=== PATIENT | female | born 1940 | race Caucasian/White ===

== ENCOUNTER 2016-12-28 08:58 | Emergency (ER) | payer MEDICARE, OTHER ==
--- NOTE | 2016-12-28 09:28 | EDM.PDOC ---
ED HPI GENERAL MEDICAL PROBLEM - General Chief Complaint: Chest Pain Stated Complaint: VERTIGO/CHEST IS TIGHT & FLUTTERY Time Seen by Provider: 12/28/16 09:05 Source of Information: Reports: Patient, Family History Limitations: Reports: No Limitations - History of Present Illness INITIAL COMMENTS - FREE TEXT/NARRATIVE: 76-year-old female who had a preoperative history and physical yesterday, mentioned to her primary care provider she's been having some intermittent chest pressure so an EKG was done but she did not hear the results. No labs were obtained. This morning she got up and had breakfast and was having some pressure and dizziness so came in to be seen. Having is also having some shortness of breath with activity at times. She had an angiogram 4 years ago which was normal. 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 She's also has a pending bunion surgery. Onset: Unknown/Unsure (Intermittent for the past several days to weeks. Symptoms are subtle.) Location: Reports: Chest Severity: Mild Worsens with: Reports: Eating, Rest Associated Symptoms: Reports: Other (Dizziness intermittently). Denies: Cough, Nausea/Vomiting Chest Pain Score (Numeric/FACES): 5 - Related Data Allergies Allergy/AdvReac Type Severity Reaction Status Date / Time codeine Allergy Chest Verified 12/28/16 09:08 Tightness erythromycin base Allergy Diarrhea Verified 12/28/16 09:08 [Erythromycin Base] Home Meds: Home Meds Aspirin [Halfprin] 81 mg PO DAILY 08/27/14 [History] Biotin 1 mg PO DAILY 08/27/14 [History] Calcium Carbonate/Vitamin D3 [Calcium 600 + Vit D Tablet] 2 tab PO DAILY [History] Fluticasone Propionate [Flonase] 1 squirt NS DAILY PRN 08/27/14 [History] Lutein 10 mg PO DAILY 08/27/14 [History] Metoprolol Succinate [Toprol XL] 50 mg PO DAILY 08/27/14 [History] Minocycline HCl [Minocycline HCl] 50 mg PO DAILY 08/27/14 [History] [place]-3 Fatty Acids [[place]-3] 3,000 mg PO DAILY 08/27/14 [History] Omeprazole [Omeprazole] 20 mg PO DAILY 08/27/14 [History] Pravastatin Sodium [Pravastatin Sodium] 80 mg PO DAILY 08/27/14 [History] Losartan/Hydrochlorothiazide [Hyzaar 50-12.5 Tablet] 1 tab PO DAILY 01/01/16 [ History] Loratadine [Claritin] 1 tab PO DAILY 12/28/16 [History] Past Medical History HEENT History: Reports: Cataract Other HEENT History: environmental allergies Cardiovascular History: Reports: High Cholesterol, Hypertension Other Cardiovascular History: irregular heart beat Gastrointestinal History: Reports: GERD, Hemorrhoids, Irritable Bowel Syndrome 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: , Prolapsed Uterus Musculoskeletal History: Reports: Arthritis Neurological History: Reports: Vertigo Other Dermatologic History: rosacea - Past Surgical History HEENT Surgical History: Reports: Cataract Surgery GI Surgical History: Reports: Cholecystectomy, Colonoscopy, Hernia Repair/Other Female Surgical History: Reports: Hysterectomy, Salpingo-Oophorectomy Social & Family History - Tobacco Use Smoking Status *Q: Never Smoker Years of Tobacco use: 15 Packs/Tins Daily: 0 Used Tobacco, but Quit: Yes Month Tobacco Last Used: 0 Second Hand Smoke Exposure: No - Caffeine Use Caffeine Use: Reports: Coffee Other Caffeine Use: 2 cupf/day - Alcohol Use Days Per Week of Alcohol Use: 1 Number of Drinks Per Day: 1 Total Drinks Per Week: 1 - Recreational Drug Use Recreational Drug Use: No ED ROS GENERAL - Review of Systems Review Of Systems: See Below Constitutional: Reports: Malaise. Denies: Fever, Chills HEENT: Reports: Vertigo Respiratory: Reports: Shortness of Breath (With activity but not consistently) Cardiovascular: Reports: Chest Pain (Slight pressure not related to activity or any certain position) GI/Abdominal: Denies: Abdominal Pain, Nausea, Vomiting : Reports: No Symptoms Musculoskeletal: Reports: No Symptoms Skin: Reports: No Symptoms Neurological: Reports: Dizziness Psychiatric: Reports: Anxiety ED EXAM, GENERAL - Physical Exam Exam: See Below Exam Limited By: No Limitations General Appearance: Alert, No Apparent Distress Eye Exam: Bilateral Eye: Normal Inspection Throat/Mouth: Normal Inspection Respiratory/Chest: No Respiratory Distress, Lungs Clear Cardiovascular: Regular Rate, Rhythm. No: Extra Beats GI/Abdominal: Soft, Non-Tender Extremities: Normal Inspection. No: Pedal Edema Neurological: Alert, Oriented, No Motor/Sensory Deficits Psychiatric: Normal Affect, Normal Mood Skin Exam: Warm, Dry EKG INTERPRETATION Rhythm: NSR Course - Vital Signs Last Recorded V/S: Last Vital Signs Temp 97.2 F 12/28/16 09:05 Pulse 65 12/28/16 10:00 Resp 14 12/28/16 09:05 BP 143/90 H 12/28/16 10:00 Pulse Ox 98 12/28/16 10:00 - Orders/Labs/Meds Orders: Active Orders 24 hr Category Date Time Status EKG Documentation Completion [RC] ASDIRECTED Care 12/28/16 09:22 Active EKG 12 Lead [EK] Routine Ther 12/28/16 09:22 Ordered Labs: Laboratory Tests 12/28/16 12/28/16 Range/Units 09:30 09:30 WBC 8.1 (4.5-11.0) K/uL RBC 5.01 (3.30-5.50) M/uL Hgb 14.9 (12.0-15.0) g/dL Hct 44.1 (36.0-48.0) % MCV 88 (80-98) fL MCH 30 (27-31) pg MCHC 34 (32-36) % Plt Count 171 (150-400) K/uL Neut % (Auto) 75 H (36-66) % Lymph % (Auto) 18 L (24-44) % [place] % (Auto) 6 (2-6) % Eos % (Auto) 1 L (2-4) % Baso % (Auto) 1 (0-1) % Sodium 141 (140-148) mmol/L Potassium 3.3 L (3.6-5.2) mmol/L Chloride 104 (100-108) mmol/L Carbon Dioxide 28 (21-32) mmol/L Anion Gap 12.3 (5.0-14.0) mmol/L BUN 15 (7-18) mg/dL Creatinine 1.1 H (0.6-1.0) mg/dL Est Cr Clr Drug Dosing 39.76 mL/min Estimated GFR (MDRD) 48 L (>60) Glucose 142 H (74-106) mg/dL Calcium 8.8 (8.5-10.1) mg/dL Troponin I < 0.017 (0.000-0.056) ng/mL - Re-Assessments/Exams Free Text/Narrative Re-Assessment/Exam: 12/28/16 09:27 EKG was done and is normal. Her symptoms are very atypical for any cardiac disease, a CBC CMP troponin were obtained and the patient monitored. 12/28/16 10:08 All labs were reassuring, troponin was 0. Patient remained asymptomatic here in the emergency room. Monitor continued to show normal sinus rhythm with normal O2 saturations. She was discharged and encouraged to follow up as scheduled. Departure - Departure Time of Disposition: 10:48 Disposition: Home, Self-Care 01 Condition: Good Clinical Impression: Chest pain, atypical - Discharge Information Instructions: Nonspecific Chest Pain, [id number] Referrals: Carmen Plummer PA [Primary Care Provider] - Forms: ED Department Discharge Care Plan Goals: Continue current medications, activity as tolerated and return anytime if you feel you're worsening or need further observation. Otherwise follow your scheduled appointments and tests as planned. - My Orders Last 24 Hours: My Active Orders 12/28/16 09:22 EKG Documentation Completion [RC] ASDIRECTED EKG 12 Lead [EK] Routine - Assessment/Plan Last 24 Hours: My Active Orders 12/28/16 09:22 EKG Documentation Completion [RC] ASDIRECTED EKG 12 Lead [EK] Routine
[2016-12-28 10:49] VITALS: BP 143/90
== END 2016-12-28 10:38 | disposition home or self-care (01) ==
LOC: JP.ED 08:58
DX: R07.89 Other chest pain (principal); E78.00 Pure hypercholesterolemia, unspecified; I10 Essential (primary) hypertension; K21.9 Gastro-esophageal reflux disease without esophagitis; M19.90 Unspecified osteoarthritis, unspecified site; Z98.49 Cataract extraction status, unspecified eye; Z90.49 Acquired absence of other specified parts of digestive tract; Z90.710 Acquired absence of both cervix and uterus; Z98.890 Other specified postprocedural states; Z88.5 Allergy status to narcotic agent; Z88.1 Allergy status to other antibiotic agents; Z79.82 Long term (current) use of aspirin; Z79.899 Other long term (current) drug therapy
CPT/HCPCS: 36415; 80048; 84484; 85025; 93005; 93010; 99285-25

== ENCOUNTER 2017-04-29 13:27 | Emergency (ER) | payer MEDICARE, OTHER ==
[2017-04-29] MEDS ORDERED: Ondansetron 4 MG/2 ML SDV IVPUSH ONE (14:10)
[2017-04-29] MEDS ORDERED: Sodium Chloride 0.9% 1,000 ML IV SCH ×2 (14:15→15:00)
--- NOTE | 2017-04-29 14:15 | EDM.PDOC ---
ED HPI GENERAL MEDICAL PROBLEM - General Chief Complaint: Neurological Problem Stated Complaint: VERTIGO/NAUSEA Time Seen by Provider: 04/29/17 14:11 Source of Information: Reports: Patient History Limitations: Reports: No Limitations - History of Present Illness INITIAL COMMENTS - FREE TEXT/NARRATIVE: pt has a long history of chronic vertigo. She usually uses ome compazine and it passes. She hs been vomiting since early and had not been able to keep anything down. Onset: Gradual, Other ( Strted wed. ) Duration: Day(s): Location: Reports: Generalized Associated Symptoms: Reports: Other (pt does not have headache. ) denies Pain Score (Numeric/FACES): 0 - Related Data Allergies Allergy/AdvReac Type Severity Reaction Status Date / Time codeine Allergy Chest Verified 04/29/17 13:45 Tightness erythromycin base Allergy Diarrhea Verified 04/29/17 13:45 [Erythromycin Base] Home Meds: Home Meds Aspirin [Halfprin] 81 mg PO DAILY 08/27/14 [History] Biotin 1 mg PO DAILY 08/27/14 [History] Calcium Carbonate/Vitamin D3 [Calcium 600 + Vit D Tablet] 2 tab PO DAILY [History] Fluticasone Propionate [Flonase] 1 squirt NS DAILY PRN 08/27/14 [History] Lutein 10 mg PO DAILY 08/27/14 [History] Metoprolol Succinate [Toprol XL] 50 mg PO DAILY 08/27/14 [History] Minocycline HCl [Minocycline HCl] 50 mg PO DAILY 08/27/14 [History] [place]-3 Fatty Acids [[place]-3] 3,000 mg PO DAILY 08/27/14 [History] Omeprazole [Omeprazole] 20 mg PO DAILY 08/27/14 [History] Pravastatin Sodium [Pravastatin Sodium] 80 mg PO DAILY 08/27/14 [History] Losartan/Hydrochlorothiazide [Hyzaar 50-12.5 Tablet] 1 tab PO DAILY 01/01/16 [ History] Loratadine [Claritin] 1 tab PO DAILY 12/28/16 [History] Past Medical History HEENT History: Reports: Cataract Other HEENT History: environmental allergies Cardiovascular History: Reports: High Cholesterol, Hypertension Other Cardiovascular History: irregular heart beat Gastrointestinal History: Reports: GERD, Hemorrhoids, Irritable Bowel 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: , Prolapsed Uterus Musculoskeletal History: Reports: Arthritis Neurological History: Reports: Vertigo Other Dermatologic History: rosacea - Past Surgical History HEENT Surgical History: Reports: Cataract Surgery GI Surgical History: Reports: Cholecystectomy, Colonoscopy, Hernia Repair/Other Female Surgical History: Reports: Hysterectomy, Salpingo-Oophorectomy, Other (See Below) Other Female Surgeries/Procedures: bladder sling surgery Musculoskeletal Surgical History: Reports: Other (See Below) Other Musculoskeletal Surgeries/Procedures:: foot surgery Social & Family History - Tobacco Use Smoking Status *Q: Never Smoker Years of Tobacco use: 15 Packs/Tins Daily: 0 Used Tobacco, but Quit: Yes Month Tobacco Last Used: 0 Second Hand Smoke Exposure: No - Caffeine Use Caffeine Use: Reports: Coffee Other Caffeine Use: 2 cupf/day - Alcohol Use Days Per Week of Alcohol Use: 1 Number of Drinks Per Day: 1 Total Drinks Per Week: 1 - Recreational Drug Use Recreational Drug Use: No ED ROS GENERAL - Review of Systems Review Of Systems: See Below Constitutional: Reports: Weakness HEENT: Reports: Vertigo, Other (Pt has a long history of vertigo. ) Respiratory: Reports: No Symptoms Cardiovascular: Reports: No Symptoms Endocrine: Reports: No Symptoms GI/Abdominal: Reports: Nausea, Vomiting, Other (vertgo) : Reports: No Symptoms Musculoskeletal: Reports: No Symptoms Skin: Reports: No Symptoms ED EXAM, NEURO - Physical Exam Exam: See Below Text/Narrative:: pt has a history of chronic vertigo. She has had an episode which started wed and now has been persistent and for the last 2 days she has not been able to hold anything down. She feels dry in the mouth. Whenever she moves she feels like the room is spinning. Exam Limited By: No Limitations General Appearance: Alert, Mild Distress, Other (pupils are equal and reactive. ) Ears: Normal TMs Nose: Normal Inspection Throat/Mouth: Normal Inspection Head Exam: Atraumatic Neck: Normal Inspection Respiratory/Chest: No Respiratory Distress GI/Abdominal: Soft, Non-Tender (Female) Exam: Deferred Rectal (Female) Exam: Deferred Neurological: Alert, Oriented x 3, Other (pt is having marked vertigo which is not different than usua when she has the episodes. l. ) Back Exam: Normal Inspection Extremities: Normal Inspection Psychiatric: Normal Affect Course - Vital Signs Last Recorded V/S: Last Vital Signs Temp 35.5 C 04/29/17 13:49 Pulse 62 04/29/17 15:46 Resp 16 04/29/17 15:46 BP 150/68 H 04/29/17 15:46 Pulse Ox 98 04/29/17 15:46 - Orders/Labs/Meds Orders: Active Orders 24 hr Category Date Time Status Sodium Chloride 0.9% [Normal Saline] 1,000 ml Med 04/29/17 14:15 Active IV ASDIRECTED Sodium Chloride 0.9% [Normal Saline] 1,000 ml Med 04/29/17 15:00 Active IV ASDIRECTED Medication Orders Sodium Chloride (Normal Saline) 1,000 mls @ 999 mls/hr IV ASDIRECTED DARBY Last Admin: 04/29/17 14:33 Dose: 999 mls/hr Sodium Chloride (Normal Saline) 1,000 mls @ 999 mls/hr IV ASDIRECTED DARBY Last Admin: 04/29/17 15:45 Dose: 999 mls/hr Labs: Laboratory Tests 04/29/17 04/29/17 04/29/17 Range/Units 14:00 14:00 14:44 WBC 8.5 (4.5-11.0) K/uL RBC 5.06 (3.30-5.50) M/uL Hgb 15.0 (12.0-15.0) g/dL Hct 43.6 (36.0-48.0) % MCV 86 (80-98) fL MCH 30 (27-31) pg MCHC 34 (32-36) % Plt Count 181 (150-400) K/uL Neut % (Auto) 83 H (36-66) % Lymph % (Auto) 12 L (24-44) % [place] % (Auto) 5 (2-6) % Eos % (Auto) 0 L (2-4) % Baso % (Auto) 0 (0-1) % Sodium 139 L (140-148) mmol/L Potassium 3.4 L (3.6-5.2) mmol/L Chloride 102 (100-108) mmol/L Carbon Dioxide 27 (21-32) mmol/L Anion Gap 13.4 (5.0-14.0) mmol/L BUN 14 (7-18) mg/dL Creatinine 0.8 (0.6-1.0) mg/dL Est Cr Clr Drug Dosing 53.83 mL/min Estimated GFR (MDRD) > 60 (>60) Glucose 140 H (74-106) mg/dL Calcium 8.9 (8.5-10.1) mg/dL Total Bilirubin 0.9 (0.2-1.0) mg/dL AST 25 (15-37) U/L ALT 26 (12-78) U/L Alkaline Phosphatase 71 (46-116) U/L Total Protein 6.5 (6.4-8.2) g/dL Albumin 3.6 (3.4-5.0) g/dL Globulin 2.9 (2.3-3.5) g/dL Albumin/Globulin Ratio 1.2 (1.2-2.2) Urine Color Yellow Urine Appearance Cloudy Urine pH 7.0 (4.5-8.0) Ur Specific [place] 1.010 (1.008-1.030) Urine Protein Negative (NEGATIVE) mg/dL Urine Glucose (UA) Normal (NEGATIVE) mg/dL Urine Ketones 50 H (NEGATIVE) mg/dL Urine Occult Blood Trace (NEGATIVE) Urine Nitrite Negative (NEGATIVE) Urine Bilirubin Negative (NEGATIVE) Urine Urobilinogen Normal (NORMAL) mg/dL Ur Leukocyte Esterase Negative (NEGATIVE) Urine RBC 0-5 (0-5) Urine WBC 0-5 (0-5) Ur Epithelial Cells Many Amorphous Sediment Few Urine Bacteria Rare Urine Mucus Few Meds: Medications Generic Name Dose Route Start Last Admin Trade Name Freraji PRN Reason Stop Dose Admin Sodium Chloride 1,000 mls @ 999 mls/hr 04/29/17 14:15 04/29/17 14:33 Normal Saline IV 999 mls/hr ASDIRECTED DARBY Administration Sodium Chloride 1,000 mls @ 999 mls/hr 04/29/17 15:00 04/29/17 15:45 Normal Saline IV 999 mls/hr ASDIRECTED DARBY Administration Discontinued Medications Generic Name Dose Route Start Last Admin Trade Name Freq PRN Reason Stop Dose Admin Ondansetron HCl 4 mg 04/29/17 14:10 04/29/17 14:34 Zofran IVPUSH 04/29/17 14:11 4 mg ONETIME ONE Administration Scopolamine 1.5 mg 04/29/17 15:01 04/29/17 15:46 Transderm-Scop TRDERM 04/29/17 15:02 1.5 mg Q72H ONE Administration - Re-Assessments/Exams Free Text/Narrative Re-Assessment/Exam: 04/29/17 15:46 pt arrived with vertigo and vomiting. She is feeling better. She was dehydrated. Shas had 2 liters of fluid. A scolpalamine patch was placed. 04/29/17 16:10 pt is feeling better. She is sipping water at this time. Departure - Departure Time of Disposition: 16:10 Disposition: Home, Self-Care 01 Condition: Fair Clinical Impression: Vertigo, Dehydration - Discharge Information Referrals: Carmen Plummer PA [Primary Care Provider] - Forms: ED Department Discharge Care Plan Goals: push fluids, zoforan 4 mg q6h if further vomiting. rtc if pt shoud develop a severe headache. - My Orders Last 24 Hours: My Active Orders 04/29/17 14:15 Sodium Chloride 0.9% [Normal Saline] 1,000 ml IV ASDIRECTED 04/29/17 15:00 Sodium Chloride 0.9% [Normal Saline] 1,000 ml IV ASDIRECTED - Assessment/Plan Last 24 Hours: My Active Orders 04/29/17 14:15 Sodium Chloride 0.9% [Normal Saline] 1,000 ml IV ASDIRECTED 04/29/17 15:00 Sodium Chloride 0.9% [Normal Saline] 1,000 ml IV ASDIRECTED
[2017-04-29] MEDS ORDERED: Scopolamine 1.5 MG Transdermal Patch TRDERM ONE (15:01)
[2017-04-29 15:47] VITALS: BP 150/68
== END 2017-04-29 16:55 | disposition home or self-care (01) ==
LOC: JP.ED 13:27
DX: E86.0 Dehydration (principal); I10 Essential (primary) hypertension; E78.00 Pure hypercholesterolemia, unspecified; K21.9 Gastro-esophageal reflux disease without esophagitis; Z79.899 Other long term (current) drug therapy; Z79.82 Long term (current) use of aspirin; Z88.5 Allergy status to narcotic agent; Z88.1 Allergy status to other antibiotic agents
CPT/HCPCS: 36415; 80053; 81001; 85025; 96361; 96374; 99284; A9270; J2405; J7040; 99283; J7030

== ENCOUNTER 2017-09-02 16:30 | Emergency (ER) | payer MEDICARE, OTHER ==
[2017-09-02] MEDS ORDERED: Sodium Chloride 0.9% 10 ML Syringe FLUSH PRN (17:34)
--- NOTE | 2017-09-02 17:34 | EDM.PDOC ---
ED HPI GENERAL MEDICAL PROBLEM - General Chief Complaint: Neurological Problem Stated Complaint: [facility] Time Seen by Provider: 09/02/17 17:15 Source of Information: Reports: Patient, Family History Limitations: Reports: No Limitations - History of Present Illness INITIAL COMMENTS - FREE TEXT/NARRATIVE: Kayla presents today with sudden onset dizziness and vertigo. She reports severe vertigo with any movement or turning of her head. She states she has not been able to keep any fluids or food down today. She denies fever, chills, nausea, vomiting or change in bowel/bladder habits. - Related Data Allergies Allergy/AdvReac Type Severity Reaction Status Date / Time codeine Allergy Chest Verified 04/29/17 13:45 Tightness erythromycin base Allergy Diarrhea Verified 04/29/17 13:45 [Erythromycin Base] Home Meds: Home Meds Aspirin [Halfprin] 81 mg PO DAILY 08/27/14 [History] Biotin 1 mg PO DAILY 08/27/14 [History] Calcium Carbonate/Vitamin D3 [Calcium 600 + Vit D Tablet] 2 tab PO DAILY [History] Fluticasone Propionate [Flonase] 1 squirt NS DAILY PRN 08/27/14 [History] Lutein 10 mg PO DAILY 08/27/14 [History] Metoprolol Succinate [Toprol XL] 50 mg PO DAILY 08/27/14 [History] Minocycline HCl 50 mg PO DAILY 08/27/14 [History] [place]-3 Fatty Acids [Ashburn-3] 3,000 mg PO DAILY 08/27/14 [History] Omeprazole 20 mg PO DAILY 08/27/14 [History] Pravastatin Sodium 80 mg PO DAILY 08/27/14 [History] Losartan/Hydrochlorothiazide [Hyzaar 50-12.5 Tablet] 1 tab PO DAILY 01/01/16 [ History] Loratadine [Claritin] 1 tab PO DAILY 12/28/16 [History] Past Medical History HEENT History: Reports: Cataract Other HEENT History: environmental allergies Cardiovascular History: Reports: High Cholesterol, Hypertension Other Cardiovascular History: irregular heart beat Gastrointestinal History: Reports: GERD, Hemorrhoids, Irritable Bowel Syndrome CHAR PULLER History: Reports: , Prolapsed Uterus Musculoskeletal History: Reports: Arthritis Neurological History: Reports: Vertigo Other Dermatologic History: rosacea - Infectious Disease History Infectious Disease History: Reports: Measles, Mumps, Shingles - Past Surgical History HEENT Surgical History: Reports: Cataract Surgery, Other (See Below) Other HEENT Surgeries/Procedures: cornea surgery Cardiovascular Surgical History: Reports: Percutaneous Transluminal Angioplasty GI Surgical History: Reports: Cholecystectomy, Colonoscopy, Hernia Repair/Other Female Surgical History: Reports: Hysterectomy, Salpingo-Oophorectomy, Other (See Below) Other Female Surgeries/Procedures: bladder sling surgery Musculoskeletal Surgical History: Reports: Carpal Tunnel, Other (See Below) Other Musculoskeletal Surgeries/Procedures:: foot surgery Social & Family History - Family History Family Medical History: Noncontributory - Tobacco Use Smoking Status *Q: Never Smoker - Caffeine Use Caffeine Use: Reports: Coffee Other Caffeine Use: 2 cupf/day - Alcohol Use Days Per Week of Alcohol Use: 0 - Recreational Drug Use Recreational Drug Use: No ED ROS GENERAL - Review of Systems Review Of Systems: See Below Constitutional: Denies: Fever, Chills, Malaise, Weakness HEENT: Reports: Eye Pain, Sinus Problem, Vertigo. Denies: Ear Pain, Hearing Loss, Vision Change Respiratory: Denies: Shortness of Breath, Wheezing, Cough, Sputum, Hemoptysis Cardiovascular: Denies: Chest Pain, Dyspnea on Exertion, Edema, Lightheadedness , Palpitations, PND, Syncope Endocrine: Reports: No Symptoms GI/Abdominal: Reports: Nausea, Vomiting. Denies: Abdominal Pain, Bloody Stool, Constipation, Diarrhea, Difficulty Swallowing, Hematemesis, Hematochezia : Denies: Dysuria, Flank Pain, Frequency, Hematuria, Pain, Urgency, Urinary Retention Musculoskeletal: Reports: No Symptoms Skin: Denies: Diaphoresis, Bruising, Rash, Erythema, Wound, Lesions, Lumps Neurological: Reports: Dizziness, Headache, Difficulty Walking, Weakness, Gait Disturbance. Denies: Confusion, Numbness, Tingling Psychiatric: Reports: No Symptoms Hematologic/Lymphatic: Reports: No Symptoms Immunologic: Reports: No Symptoms ED EXAM, NEURO - Physical Exam Exam: See Below Text/Narrative:: Kayla is an alert and oriented 77 year old female presenting with dizziness and vertigo since 3am today. She also complaints of nausea, vomiting all day and inability to turn her head, change positions without significant vertigo. She reports past history of vertigo, use of PT, zofran and valium. She reports the interventions did help. She states use of zofran made her constipated and she did not like how the valium made her feel. She also reports her primary provider instructed her to have a head CT for repeat episodes of severe vertigo. Exam Limited By: No Limitations General Appearance: Alert, WD/WN, Moderate Distress Eye Exam: Bilateral Eye: Nystagmus (Nystagmus with change in position or turning head, right eye has increased movement compared to left. ), PERRL Ears: Normal External Exam, Normal Canal, Hearing Grossly Normal, Normal TMs Nose: Normal Inspection, Normal Mucosa Throat/Mouth: Normal Inspection, Normal Lips, Normal Teeth, Normal Gums, Normal Oropharynx, Normal Voice, No Airway Compromise Head Exam: Atraumatic, Normocephalic, Facial Tenderness, Other (Left frontal and maxillary sinus tenderness with percussion. ) Neck: Normal Inspection, Supple, Non-Tender, Full Range of Motion. No: Lymphadenopathy (R), Lymphadenopathy (L) Respiratory/Chest: No Respiratory Distress, Lungs Clear, Normal Breath Sounds, No Accessory Muscle Use, Chest Non-Tender Cardiovascular: Normal Peripheral Pulses, Regular Rate, Rhythm, No Edema, No Gallop, No Murmur, No Rub GI/Abdominal: Normal Bowel Sounds, Soft, Non-Tender, No Organomegaly, No Distention, No Abnormal Bruit, No Mass Neurological: Alert, Normal Mood/Affect, Normal Dorsiflexion, Normal Plantar Flexion, Normal Reflexes, No Motor/Sensory Deficits, Oriented x 3, Difficulty Walking DTR: 2+: Bicep (R), Bicep (L), Patella (R), Patella (L) Back Exam: Normal Inspection, Full Range of Motion. No: CVA Tenderness (R), CVA Tenderness (L) Extremities: Normal Inspection, Normal Range of Motion, Non-Tender, No Pedal Edema, Normal Capillary Refill Psychiatric: Normal Affect, Normal Mood Skin Exam: Warm, Dry, Intact, Normal Color, No Rash, Other (Flushed in the face and neck) EKG INTERPRETATION EKG Date: 09/02/17 Rhythm: NSR Rate (Beats/Min): 60 [place]: Normal P-Wave: Present QRS: Normal ST-T: Normal QT: Normal Course - Vital Signs Last Recorded V/S: Last Vital Signs Temp 36.0 C 09/02/17 19:47 Pulse 59 L 09/02/17 19:47 Resp 18 09/02/17 19:47 BP 163/73 H 09/02/17 19:47 Pulse Ox 96 09/02/17 19:47 - Orders/Labs/Meds Orders: Active Orders 24 hr Category Date Time Status EKG Documentation Completion [RC] ASDIRECTED Care 09/02/17 17:39 Active Head wo Cont [CT] Stat Exams 09/02/17 17:36 Taken UA W/MICROSCOPIC [URIN] Stat Lab 09/02/17 18:27 Ordered Sodium Chloride 0.9% [Normal Saline] 1,000 ml Med 09/02/17 17:45 Active IV ASDIRECTED Sodium Chloride 0.9% [Saline Flush] Med 09/02/17 17:34 Active 10 ml FLUSH ASDIRECTED PRN Saline Lock Insert [OM.PC] Routine Oth 09/02/17 17:34 Ordered EKG 12 Lead [EK] Routine Ther 09/02/17 17:39 Ordered Medication Orders Sodium Chloride (Normal Saline) 1,000 mls @ 500 mls/hr IV ASDIRECTED DARBY Last Admin: 09/02/17 18:21 Dose: 500 mls/hr Sodium Chloride (Saline Flush) 10 ml FLUSH ASDIRECTED PRN PRN Reason: Keep Vein Open Labs: Laboratory Tests 09/02/17 09/02/17 09/02/17 Range/Units 17:45 17:45 18:27 WBC 8.9 (4.5-11.0) K/uL RBC 4.84 (3.30-5.50) M/uL Hgb 14.2 (12.0-15.0) g/dL Hct 42.2 (36.0-48.0) % MCV 87 (80-98) fL MCH 29 (27-31) pg MCHC 34 (32-36) % Plt Count 166 (150-400) K/uL Neut % (Auto) 80 H (36-66) % Lymph % (Auto) 13 L (24-44) % Grainger % (Auto) 6 (2-6) % Eos % (Auto) 0 L (2-4) % Baso % (Auto) 0 (0-1) % Sodium 139 L (140-148) mmol/L Potassium 3.6 (3.6-5.2) mmol/L Chloride 103 (100-108) mmol/L Carbon Dioxide 26 (21-32) mmol/L Anion Gap 13.6 (5.0-14.0) mmol/L BUN 13 (7-18) mg/dL Creatinine 0.9 (0.6-1.0) mg/dL Est Cr Clr Drug Dosing 47.85 mL/min Estimated GFR (MDRD) > 60 (>60) Glucose 112 H (74-106) mg/dL Calcium 8.3 L (8.5-10.1) mg/dL Total Bilirubin 0.6 (0.2-1.0) mg/dL AST 25 (15-37) U/L ALT 24 (12-78) U/L Alkaline Phosphatase 70 (46-116) U/L Total Protein 6.1 L (6.4-8.2) g/dL Albumin 3.1 L (3.4-5.0) g/dL Globulin 3.0 (2.3-3.5) g/dL Albumin/Globulin Ratio 1.0 L (1.2-2.2) Urine Color Yellow Urine Appearance Clear Urine pH 8.0 (4.5-8.0) Ur Specific [place] 1.010 (1.008-1.030) Urine Protein Negative (NEGATIVE) mg/dL Urine Glucose (UA) Normal (NEGATIVE) mg/dL Urine Ketones Negative (NEGATIVE) mg/dL Urine Occult Blood Negative (NEGATIVE) Urine Nitrite Negative (NEGATIVE) Urine Bilirubin Negative (NEGATIVE) Urine Urobilinogen Normal (NORMAL) mg/dL Ur Leukocyte Esterase Negative (NEGATIVE) Urine RBC 0-5 (0-5) Urine WBC 0-5 (0-5) Ur Epithelial Cells Few Amorphous Sediment Rare Urine Bacteria Not seen Urine Mucus Not seen Meds: Medications Generic Name Dose Route Start Last Admin Trade Name Freq PRN Reason Stop Dose Admin Sodium Chloride 1,000 mls @ 500 mls/hr 09/02/17 17:45 09/02/17 18:21 Normal Saline IV 500 mls/hr ASDIRECTED DARBY Administration Sodium Chloride 10 ml 09/02/17 17:34 Saline Flush FLUSH ASDIRECTED PRN Keep Vein Open Discontinued Medications Generic Name Dose Route Start Last Admin Trade Name Freq PRN Reason Stop Dose Admin Diazepam 2.5 mg 09/02/17 20:02 Valium Intensol 5 Mg/Ml PO 09/02/17 20:03 ONETIME ONE Meclizine HCl 25 mg 05/18/18 17:40 09/02/17 18:21 Antivert PO 09/02/17 17:41 25 mg ONETIME ONE Administration Metoclopramide HCl 5 mg 09/02/17 17:40 09/02/17 18:21 Reglan PO 09/02/17 17:41 5 mg ONETIME ONE Administration Metoclopramide HCl Confirm 09/02/17 17:57 09/02/17 18:22 Reglan Administered 09/02/17 17:58 Not Given Dose 10 mg .ROUTE .Gingr ONE - Radiology Interpretation CT Results Date: 09/02/17 (Head CT negative for acute intracranial hemorrhage or mass effect. ) - Re-Assessments/Exams Free Text/Narrative Re-Assessment/Exam: 09/02/17 20:09 Kayla reports she feels better and would like to go home. Education and discussion on vertigo, management and medications completed. Patient and her verbalized understanding. Departure - Departure Time of Disposition: 20:12 Disposition: Home, Self-Care 01 Condition: Fair Clinical Impression: Vertigo, Nausea & vomiting - Discharge Information Referrals: PCP,None [Primary Care Provider] - Forms: ED Department Discharge Additional Instructions: You have been evaluated and treated in the emergency room for nausea, vomiting and vertigo. Your lab work and Head CT did not show any acute findings or concern. Keep yourself hydrated. Take meclizine as directed Take zofran as directed for nausea (this is only anti-nausea medication available at this time). Fill prescription for reglan to use sparingly. It would be best to follow up with physical therapy for vertigo. Follow up with your provider on Tuesday for recheck. Take all other medications as directed. Return to the emergency room for worsening, issues or concerns. - My Orders Last 24 Hours: My Active Orders 09/02/17 17:34 Sodium Chloride 0.9% [Saline Flush] 10 ml FLUSH ASDIRECTED PRN Saline Lock Insert [OM.PC] Routine 09/02/17 17:36 Head wo Cont [CT] Stat 09/02/17 17:39 EKG Documentation Completion [RC] ASDIRECTED EKG 12 Lead [EK] Routine 09/02/17 17:45 Sodium Chloride 0.9% [Normal Saline] 1,000 ml IV ASDIRECTED 09/02/17 18:27 UA W/MICROSCOPIC [URIN] Stat - Assessment/Plan Last 24 Hours: My Active Orders 09/02/17 17:34 Sodium Chloride 0.9% [Saline Flush] 10 ml FLUSH ASDIRECTED PRN Saline Lock Insert [OM.PC] Routine 09/02/17 17:36 Head wo Cont [CT] Stat 09/02/17 17:39 EKG Documentation Completion [RC] ASDIRECTED EKG 12 Lead [EK] Routine 09/02/17 17:45 Sodium Chloride 0.9% [Normal Saline] 1,000 ml IV ASDIRECTED 09/02/17 18:27 UA W/MICROSCOPIC [URIN] Stat Assessment:: Nausea, vomiting and vertigo Plan: Patient evaluated and treated in the emergency room for nausea, vomiting and vertigo. Lab work and Head CT did not show any acute findings or concern. Keep herself hydrated. Take meclizine as directed Take zofran as directed for nausea (this is only anti-nausea medication available at this time). Fill prescription for reglan to use sparingly. It would be best to follow up with physical therapy for vertigo. Follow up with primary provider on Tuesday for recheck. Take all other medications as directed. Return for worsening, issues or concerns.
[2017-09-02] MEDS ORDERED: Meclizine 25 MG Tab PO ONE (17:40)
[2017-09-02] MEDS ORDERED: Metoclopramide 5 MG Tab PO ONE (17:40)
[2017-09-02] MEDS ORDERED: Sodium Chloride 0.9% 1,000 ML IV SCH (17:45)
[2017-09-02] MEDS ORDERED: Metoclopramide 10 MG Tab ONE (17:57)
[2017-09-02 19:48] VITALS: BP 163/73
[2017-09-02] MEDS ORDERED: Diazepam 5 MG/ML ML Oral Soln 30 ML Bottle PO ONE (20:02)
[2017-09-02] MEDS ORDERED: Diazepam ORAL 5 MG/ML U/D Container ONE (20:22)
== END 2017-09-02 20:03 | disposition home or self-care (01) ==
LOC: JP.ED 16:30
DX: R42 Dizziness and giddiness (principal); R11.2 Nausea with vomiting, unspecified; E78.00 Pure hypercholesterolemia, unspecified; I10 Essential (primary) hypertension; Z88.5 Allergy status to narcotic agent; Z88.1 Allergy status to other antibiotic agents; Z79.82 Long term (current) use of aspirin; Z79.899 Other long term (current) drug therapy
CPT/HCPCS: 36415; 70450; 80053; 81001; 85025; 93005; 96360; 96361; 99285; A9270; J7040

== ENCOUNTER 2018-07-04 06:18 | Day surgery (SDC) | payer MEDICARE, OTHER ==
[2018-07-04] MEDS ORDERED: Bupivacaine 0.5% 50 ML MDV ONE (06:38)
[2018-07-04] MEDS ORDERED: Lactated Ringers 1,000 ML IV SCH (07:00)
[2018-07-04] MEDS ORDERED: cefOXitin 2 GM in Sodium Chloride 0.9% 50 ML IV ONE (07:30)
[2018-07-04] MEDS ORDERED: ceFAZolin 2 GM in Premix Bag 1 BAG IV ONE (07:30)
[2018-07-04] MEDS ORDERED: fentaNYL 100 MCG/2 ML SDV ONE (07:34)
[2018-07-04] MEDS ORDERED: Propofol 200 MG/20 ML SDV ONE (07:34)
[2018-07-04] MEDS ORDERED: Midazolam 1 MG/ML 2 ML SDV ONE (07:34)
[2018-07-04] MEDS ORDERED: traMADol 50 MG Tab PO ONE (09:48)
[2018-07-04 09:58] VITALS: BP 175/90
--- NOTE | 2018-07-04 14:02 | OR ---
DATE OF PROCEDURE: 07/04/2018 PREOPERATIVE DIAGNOSIS: Left carpal tunnel syndrome. POSTOPERATIVE DIAGNOSIS: Left carpal tunnel syndrome. PROCEDURE: Release of left transverse carpal ligament. BLOOD LOSS: Minimum. INDICATIONS: Kayla is a 78-year-old lady, had been having some numbness, tingling, burning sensation of the territory of the median nerve over her left hand going on for the last year, progressive in nature. She had an EMG done, which showed severe carpal tunnel on the left side. Since she had failed conservative treatment and had discomfort on a daily basis, it was decided to proceed with surgery. I discussed with the patient the possible risks, benefits, alternatives, and complications of surgery. The nature of the surgery was explained, all questions were answered, I had informed consent. PROCEDURE IN DETAIL: The patient was brought to the OR. I did my markings on the left. She did receive antibiotics preop. The KEY RINGER proceeded with slight IV sedation. The patient was put on her back. Tourniquet was applied to the left proximal upper extremity. Sterile prep and dressing were done in the usual manner at the left wrist. Time-out was taken to identify the correct surgical site. I did a local block with Marcaine plain in the subcutaneous tissue down to the transverse carpal ligament of her left wrist. The arm was elevated, tourniquet was raised to 250 mmHg. Incision was done with the scalpel, starting at the wrist crease, going ulnar to the thenar muscle belly, an incision of about 2.5 cm. Dissection was carried down to the transverse carpal ligament where the slight opening is done proximally with Metzenbaum scissors, making sure not to violate the deep structures, and a groove adapter is passed underneath the transverse carpal ligament distally and proximally and a complete release was done. The nerve showed slight inflammation but was intact. Once the release was done, the site was washed with saline. The skin was closed with nylon 3-0 simple sutures, and a compressing dressing was applied. Tourniquet was released. Blood loss was minimal. There was no complication. The patient tolerated well the operation. She was sent to recovery room in good condition. Rex Schwarz MD /[id number]
== END 2018-07-04 11:06 | disposition home or self-care (01) ==
LOC: JP.SDS 06:18
PROVIDERS: ATTEND Orthopaedic Surgery
DX: G56.02 Carpal tunnel syndrome, left upper limb (principal); G56.92 Unspecified mononeuropathy of left upper limb; I10 Essential (primary) hypertension; E66.9 Obesity, unspecified; Z68.29 Body mass index [BMI] 29.0-29.9, adult; E78.00 Pure hypercholesterolemia, unspecified; K21.9 Gastro-esophageal reflux disease without esophagitis; M17.0 Bilateral primary osteoarthritis of knee; Z87.891 Personal history of nicotine dependence; Z79.82 Long term (current) use of aspirin; Z79.899 Other long term (current) drug therapy; Z88.5 Allergy status to narcotic agent; Z88.1 Allergy status to other antibiotic agents
CPT/HCPCS: 64721; A9270; J0690; J2250; J2704; J3010; J3490; J7120

== ENCOUNTER 2021-03-25 17:46 | Emergency (ER) | payer MEDICARE, OTHER ==
--- NOTE | 2021-03-25 18:17 | EDM.PDOC ---
ED HPI GENERAL MEDICAL PROBLEM - General Chief Complaint: General Stated Complaint: HIGH BP Time Seen by Provider: 03/25/21 18:06 Source of Information: Reports: Patient, Family, RN Notes Reviewed History Limitations: Reports: No Limitations - History of Present Illness INITIAL COMMENTS - FREE TEXT/NARRATIVE: 81-year-old female presents emergency department today concerned about blood pressure. She was at [facility] had elevated blood pressure systolic 190 recommended follow-up with her primary for further evaluation, she thought she stopped at [facility] check her blood pressure it was systolic 180 [facility] staff recommended she report to the emergency department for further evaluation. She is here does have elevated blood pressure however she is asymptomatic at this time is on 2 blood pressure medications does admit to being quite anxious about the holiday season - Related Data Allergies Allergy/AdvReac Type Severity Reaction Status Date / Time codeine Allergy Chest Verified 03/25/21 17:58 Tightness erythromycin base Allergy Diarrhea Verified 03/25/21 17:58 [Erythromycin Base] Home Meds: Home Meds Biotin 1 mg PO DAILY 08/27/14 [History] Calcium Carbonate/Vitamin D3 [Calcium 600 + Vit D Tablet] 3 tab PO DAILY 08/27/14 [History] Fluticasone Propionate [Flonase] 1 squirt NS DAILY PRN 08/27/14 [History] Lutein 10 mg PO DAILY 08/27/14 [History] Metoprolol Succinate [Toprol XL] 50 mg PO DAILY 08/27/14 [History] [place]-3 Fatty Acids [[place]-3] 3,000 mg PO DAILY 08/27/14 [History] Pravastatin Sodium 80 mg PO DAILY 08/27/14 [History] Losartan/Hydrochlorothiazide [Hyzaar 50-12.5 Tablet] 1 tab PO DAILY 01/01/16 [History] Loratadine [Claritin] 1 tab PO DAILY 12/28/16 [History] Meclizine [Antivert] 12.5 mg PO TID PRN 07/03/18 [History] Past Medical History HEENT History: Reports: Cataract Other HEENT History: environmental allergies Cardiovascular History: Reports: High Cholesterol, Hypertension Other Cardiovascular History: irregular heart beat Gastrointestinal History: Reports: GERD, Hemorrhoids, Irritable Bowel Syndrome 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: , Prolapsed Uterus Musculoskeletal History: Reports: Arthritis Neurological History: Reports: Vertigo Other Dermatologic History: rosacea - Infectious Disease History Infectious Disease History: Reports: Chicken Pox, Mumps, Shingles - Past Surgical History HEENT Surgical History: Reports: Cataract Surgery, Other (See Below) Other HEENT Surgeries/Procedures: cornea surgery Cardiovascular Surgical History: Reports: Percutaneous Transluminal Angioplasty Other Cardiovascular Surgeries/Procedures: angiogram x 2 GI Surgical History: Reports: Cholecystectomy, Colonoscopy, Hernia Repair/Other Female Surgical History: Reports: Hysterectomy, Salpingo-Oophorectomy, Other (See Below) Other Female Surgeries/Procedures: bladder sling surgery Musculoskeletal Surgical History: Reports: Carpal Tunnel, Other (See Below) Other Musculoskeletal Surgeries/Procedures:: foot surgery Social & Family History - Family History Family Medical History: No Pertinent Family History - Tobacco Use Tobacco Use Status *Q: Never Tobacco User - Caffeine Use Caffeine Use: Reports: Coffee Other Caffeine Use: 2 cupf/day - Recreational Drug Use Recreational Drug Use: No ED ROS GENERAL - Review of Systems Review Of Systems: See Below Constitutional: Reports: No Symptoms HEENT: Reports: No Symptoms Respiratory: Reports: No Symptoms Cardiovascular: Reports: Blood Pressure Problem GI/Abdominal: Reports: No Symptoms ED EXAM, GENERAL - Physical Exam Exam: See Below Exam Limited By: No Limitations General Appearance: Alert, WD/WN, No Apparent Distress Respiratory/Chest: No Respiratory Distress, Lungs Clear, Normal Breath Sounds, No Accessory Muscle Use, Chest Non-Tender Cardiovascular: Regular Rate, Rhythm, No Murmur Course - Vital Signs Last Recorded V/S: Last Vital Signs Temp 96.7 F L 03/25/21 18:04 Pulse 81 03/25/21 18:04 Resp 16 03/25/21 18:04 BP 178/91 H 03/25/21 19:07 Pulse Ox 99 03/25/21 18:04 - Orders/Labs/Meds Meds: Medications Discontinued Medications Generic Name Dose Route Start Last Admin Trade Name Freq PRN Reason Stop Dose Admin Lorazepam 0.5 mg 03/25/21 18:14 03/25/21 18:23 Lorazepam 0.5 Mg Tab PO 03/25/21 18:15 0.5 mg ONETIME ONE Administration Lorazepam Confirm 03/25/21 18:26 Lorazepam 0.5 Mg Tab Administered 03/25/21 18:27 Dose 0.5 mg .ROUTE .STK-MED ONE Departure - Departure Time of Disposition: 19:08 Disposition: Home, Self-Care 01 Condition: Fair Clinical Impression: Hypertension Qualifiers: Hypertension type: unspecified Qualified Code(s): I10 - Essential (primary) hypertension - Discharge Information Instructions: Hypertension, Adult Referrals: Odalis Alonso NP [Primary Care Provider] - Forms: ED Department Discharge Additional Instructions: Watch her salt intake, please followup with your primary care provider in 3-5 days if not better, please call return to the emergency department with worsening of symptoms. Sepsis Event Note (ED) - Evaluation Sepsis Screening Result: No Definite Risk - Focused Exam Vital Signs: Vital Signs Temp Pulse Resp BP Pulse Ox 03/25/21 19:07 178/91 H 03/25/21 18:04 96.7 F L 81 16 197/95 H 99 03/25/21 17:57 96.7 F L 81 16 197/95 H 99 - Assessment/Plan Plan: Assessment Acuity = acute Site and laterality = hypertensive urgency Etiology = unknown Manifestations = none Location of injury = Home Lab values = none Plan Good improvement with 0.5 mg Ativan, plan is she is going to watch her salt intake follow-up with primary care for reevaluation This note was dictated using [email or web address] voice recognition software please call with any questions on syntax or grammar.
[2021-03-25] MEDS: LORazepam 0.5 MG Tab PO ONE (18:23)
[2021-03-25] MEDS ORDERED: LORazepam 0.5 MG Tab ONE (18:26)
[2021-03-25 18:39] VITALS: PULSE 81
[2021-03-25 19:08] VITALS: BP 178/91
== END 2021-03-25 19:20 | disposition home or self-care (01) ==
LOC: JP.ED 17:46
DX: I10 Essential (primary) hypertension (principal); E78.00 Pure hypercholesterolemia, unspecified; Z88.5 Allergy status to narcotic agent; Z88.1 Allergy status to other antibiotic agents; Z79.899 Other long term (current) drug therapy
CPT/HCPCS: 99283; A9270

== ENCOUNTER 2023-12-27 08:24 | Emergency (ER) | payer MEDICARE ==
[2023-12-27 08:35] VITALS: PULSE 77
[2023-12-27] MEDS: Ibuprofen 400 MG Tab PO ONE (09:18)
[2023-12-27 09:19] VITALS: BP 171/86
== END 2023-12-27 09:50 | disposition home or self-care (01) ==
LOC: JP.ED 08:24
DX: S00.411A Abrasion of right ear, initial encounter (principal); I10 Essential (primary) hypertension; K21.9 Gastro-esophageal reflux disease without esophagitis; Z90.49 Acquired absence of other specified parts of digestive tract; Z90.710 Acquired absence of both cervix and uterus; Z87.891 Personal history of nicotine dependence; Z79.899 Other long term (current) drug therapy; Z88.1 Allergy status to other antibiotic agents; Z88.5 Allergy status to narcotic agent; X58.XXXA Exposure to other specified factors, initial encounter
CPT/HCPCS: 99283; A9270

== ENCOUNTER 2024-10-17 04:29 | Emergency (ER) | payer MEDICARE ==
[2024-10-17] MEDS: Ondansetron 4 MG Tab.DIS PO ONE (05:44)
[2024-10-17 06:02] LABS: GLUCOSE,URINE NEGATIVE (NEGATIVE); OCCULT BLOOD,URINE TRACE-INTACT (NEGATIVE)
[2024-10-17 06:09] LABS: APPEARANCE,URINE SLIGHTLY CLOUDY (CLEAR); EPITHELIAL CELLS,URINE FEW
[2024-10-17 06:45] LABS: BASOPHILS ABSOLUTE AUTO 0.04 K/uL (0.00-0.10); BASOPHILS PERCENT AUTO 0.6 % (0.1-1.3); EOSINOPHILS ABSOLUTE AUTO 0.13 K/uL (0.00-0.40); EOSINOPHILS PERCENT AUTO 1.9 % (0.0-5.4); IMMATURE GRAN ABSOLUTE AUTO 0.01 K/uL (0.00-0.23); IMMATURE GRAN PERCENT AUTO 0.1 % (0.0-0.7); LYMPHOCYTES ABSOLUTE AUTO 1.28 K/uL (0.8-3.3); LYMPHOCYTES PERCENT AUTO 18.6 % (11.4-47.7); MONOCYTES ABSOLUTE AUTO 0.40 K/uL (0.20-0.90); MONOCYTES PERCENT AUTO 5.8 % (3.3-12.6); NEUTROPHILS ABSOLUTE AUTO 5.01 K/uL (1.0-7.6); NEUTROPHILS PERCENT AUTO 73.0 % (40.0-78.1); PLATELET COUNT,PLT 139 K/uL (130-375); RED BLOOD CELL COUNT 4.53 M/uL (3.77-5.24); WHITE BLOOD CELL COUNT,WBC 6.9 K/uL (3.2-11.0)
[2024-10-17 06:55] LABS: A/G RATIO 1.0 (1.2-2.2); ALANINE AMINOTRANSFERASE,ALT 21 U/L (12-78); ASPARTATE AMNIOTRANSFERASE,AST 22 U/L (15-37); BILIRUBIN TOTAL 0.7 mg/dL (0.2-1.0); BLOOD UREA NITROGEN,BUN 14 mg/dL (7-18); CARBON DIOXIDE,CO2 28 mmol/L (21-32); CHLORIDE,CL 106 mmol/L (100-108); CREATININE 0.8 mg/dL (0.6-1.0); EST CRCL DRUG DOSING (CG) 47.95 mL/min; ESTIMATED GFR 73 mL/min (>60); GLUCOSE RANDOM 105 mg/dL (74-106); POTASSIUM,K 3.8 mmol/L (3.6-5.2); PROTEIN TOTAL,TP 6.8 g/dL (6.4-8.2); SODIUM,NA 143 mmol/L (140-148); TROPONIN I HIGH SENSITIVITY 6.0 pg/mL (<=60.3)
[2024-10-17] MEDS: Sodium Chloride 0.9% 10 ML Syringe FLUSH ONE (07:34)
[2024-10-17] MEDS: Iopamidol 755 Mg/ML 100 ML Bottle IV SCH (07:34)
[2024-10-17 08:43] VITALS: BP 182/82; PULSE 67
== END 2024-10-17 11:19 | disposition home or self-care (01) ==
LOC: JP.ED 04:29
DX: N39.0 Urinary tract infection, site not specified (principal); I10 Essential (primary) hypertension; E78.00 Pure hypercholesterolemia, unspecified; K21.9 Gastro-esophageal reflux disease without esophagitis; M19.90 Unspecified osteoarthritis, unspecified site; Z88.5 Allergy status to narcotic agent; Z88.1 Allergy status to other antibiotic agents; Z79.899 Other long term (current) drug therapy; Z79.51 Long term (current) use of inhaled steroids; Z90.49 Acquired absence of other specified parts of digestive tract; Z90.710 Acquired absence of both cervix and uterus
CPT/HCPCS: 36415; 70450; 70496; 70498; 80053; 81001; 83605; 84484; 85025; 87086; 99285; A9270; Q0162; Q9967

== ENCOUNTER 2025-01-23 11:00 | Emergency (ER) | payer MEDICARE ==
[2025-01-23] MEDS ORDERED: Sodium Chloride 0.9% 10 ML Syringe FLUSH PRN (12:03)
[2025-01-23 12:16] LABS: BASOPHILS ABSOLUTE AUTO 0.04 K/uL (0.00-0.10); BASOPHILS PERCENT AUTO 0.4 % (0.1-1.3); EOSINOPHILS ABSOLUTE AUTO 0.04 K/uL (0.00-0.40); EOSINOPHILS PERCENT AUTO 0.4 % (0.0-5.4); IMMATURE GRAN ABSOLUTE AUTO 0.05 K/uL (0.00-0.23); IMMATURE GRAN PERCENT AUTO 0.5 % (0.0-0.7); LYMPHOCYTES ABSOLUTE AUTO 1.06 K/uL (0.8-3.3); LYMPHOCYTES PERCENT AUTO 10.1 % (11.4-47.7); MONOCYTES ABSOLUTE AUTO 0.46 K/uL (0.20-0.90); MONOCYTES PERCENT AUTO 4.4 % (3.3-12.6); NEUTROPHILS ABSOLUTE AUTO 8.85 K/uL (1.0-7.6); NEUTROPHILS PERCENT AUTO 84.2 % (40.0-78.1); PLATELET COUNT,PLT 210 K/uL (130-375); RED BLOOD CELL COUNT 4.74 M/uL (3.77-5.24); WHITE BLOOD CELL COUNT,WBC 10.5 K/uL (3.2-11.0)
[2025-01-23 12:41] LABS: A/G RATIO 0.8 (1.2-2.2); ALANINE AMINOTRANSFERASE,ALT 22 U/L (12-78); ASPARTATE AMNIOTRANSFERASE,AST 22 U/L (15-37); BILIRUBIN TOTAL 0.7 mg/dL (0.2-1.0); BLOOD UREA NITROGEN,BUN 12 mg/dL (7-18); CARBON DIOXIDE,CO2 25 mmol/L (21-32); CHLORIDE,CL 104 mmol/L (100-108); CREATININE 0.7 mg/dL (0.6-1.0); EST CRCL DRUG DOSING (CG) 51.66 mL/min; ESTIMATED GFR 85 mL/min (>60); GLUCOSE RANDOM 128 mg/dL (74-106); POTASSIUM,K 3.5 mmol/L (3.6-5.2); PROTEIN TOTAL,TP 7.2 g/dL (6.4-8.2); SODIUM,NA 141 mmol/L (140-148); TROPONIN I HIGH SENSITIVITY 4.5 pg/mL (<=60.3)
[2025-01-23 14:31] VITALS: BP 147/99; PULSE 87
[2025-01-23 14:36] LABS: APPEARANCE,URINE CLOUDY (CLEAR); GLUCOSE,URINE NEGATIVE (NEGATIVE); OCCULT BLOOD,URINE TRACE-INTACT (NEGATIVE)
[2025-01-23 14:52] LABS: SQUAMOUS EPITHELIAL CELLS,UR MODERATE /HPF
== END 2025-01-23 15:34 | disposition home or self-care (01) ==
LOC: JP.ED 11:00
DX: R53.83 Other fatigue (principal); R63.8 Other symptoms and signs concerning food and fluid intake; E78.00 Pure hypercholesterolemia, unspecified; I10 Essential (primary) hypertension; K21.9 Gastro-esophageal reflux disease without esophagitis; Z90.79 Acquired absence of other genital organ(s); Z88.5 Allergy status to narcotic agent; Z88.1 Allergy status to other antibiotic agents; Z79.899 Other long term (current) drug therapy; Z79.82 Long term (current) use of aspirin
CPT/HCPCS: 36415; 71046; 80053; 81001; 84484; 85025; 87428; 93005; 96360; 99284; A9270; J7040; 93010